=== PATIENT | female | born 1935 | race Caucasian/White ===

== ENCOUNTER → 2022-06-29 14:42 | Outpatient (BNVA) | payer MEDICARE, SELFPAY | PROVIDERS: PCP Nurse Practitioner Adult Health; Visit Provider Psychiatry & Neurology Neurology | DX: G20 Parkinson's disease (principal) | CPT/HCPCS: 99202 ==

== ENCOUNTER 2022-10-17 12:27 | Outpatient (AMB) | payer MEDICARE, SELFPAY ==
[2022-10-17 12:32] VITALS: BP 126/82; PULSE 76; O2SAT 98; BMI 27.3
--- NOTE | 2022-10-17 12:32 | MHC.OFFVIS ---
Intake Vital Signs 10/17/22 12:32 Height 5 ft Weight 140 lb BMI 27.3 BP 126/82 Blood Pressure Location Rt brachial Position Sitting Pulse 76 Pulse Source Pulse Oximeter Pulse Oximetry (%) 98 Oxygen Delivery Method Room Air Intake Visit Reasons: 3m follow Seizure-lvm Intake Note: Patient presents for 3 month follow up seizures Allergies atorvastatin [From Lipitor] Allergy (Unknown, Verified 10/17/22 12:34) Muscle Pain rosuvastatin [From Crestor] Allergy (Unknown, Verified 10/17/22 12:34) Muscle Pain Medication List - Last Reconciled 10/17/22 by Akiko Reaves MD acetaminophen 325 mg PO QID PRN aspirin 81 mg PO DAILY carbidopa-levodopa 25-100 mg tabs PO TID COVID-19 antigen test ([employer] COVID-19 Ag Self Test kit) As directed gabapentin 100 mg PO BEDTIME hydrochlorothiazide 12.5 mg PO DAILY lidocaine 5% 1 patch topical DAILY HPI HPI Comments History of Present Illness Details 87y/o Right handed female comes for follow up of parkinsons disease. she reports her tremors are worse in her legs at night and she started noticing tremors in her right hand.The leg twicthing at night wakes he rup, she moves around and takes tylenol.No episodes of passing out she is exercising at the [employer] 2 times a week. She moved from [facility] about 9months ago. she was diagnosed with parkinsons about 7 years ago . she had tremors in her right UE and slowly progressed .she is on carbidopa/levodopa 25/100 tid which helps. She also reports progressive memory issues.she denies word finding difficulties.she writes everything down to compensate . she still drives and has no issues . she lives alone and has 2 daughters who live in the area. Sleep is disrupted due to frequent long awakenings at night.She has vivid dreams . Not sure of REM behavior disorder. she has anxiety she did not notice any change in his speech or any drooling . she denies difficulty with hand writing, using utensils, dressing , shower. Her gait is slow and mildly off balance . No falls No dizziness , no double vision . she had cataract surgery . she has mild constipation and mild urgency she exercises 2-3 times a week [facility] Medical History Arthritis COPD (chronic obstructive pulmonary disease) HTN (hypertension) Hyperlipidemia Osteoporosis Parkinson's disease Syncope Surgical History History of knee surgery Hx of surgical fusion joint S/P trigger finger release Status post Mohs surgery Family History Mother Cardiovascular disease Glaucoma Parkinsons disease Father Lung cancer Diabetes Social History Alcohol intake: current Alcohol intake frequency: a few times a month Patient Tobacco Use Status: Former Tobacco user Physical Exam Vital Signs: Last Vital Signs Pulse 76 10/17/22 12:32 BP 126/82 10/17/22 12:32 Pulse Ox 98 10/17/22 12:32 Oxygen Delivery Method Room Air 10/17/22 12:32 BMI result Body Mass Index 27.3 Const General: cooperative, healthy appearing and comfortable Nutritional Appearance: average body habitus Orientation/consciousness: patient oriented x3 HEENT Head: Yes normal to inspection Neuro Other: No tremors No cog wheel rigidity Mild bradykinesia FFM and foot taps decreased brigitte mild Gait - stooped, small steps off balance Mild decreased facial expression and blink General: patient oriented x3, moves all extremities and no focal motor deficits Cranial nerves: Yes Facial sensation intact/muscles of mastication intact, Yes Bilaterally intact EOM present, Yes Nystagmus not present, Yes Normal facial strength present, Yes Midline tongue present and Yes Symmetric palate elevation present Cognition (Neuro): normal cognition Gait exam (Neuro): Antalgic gait present Motor exam (neuro): 5/5 motor strength present throughout and Normal motor muscle tone present throughout Coordination: [id number] test normal Psych Affect: Anxious affect present Assessment & Plan Assessment & Plan (1) Parkinson's disease: Comment: stable Code(s): G20 - Parkinson's disease Plan Continue carbidopa/levodopa 25/100 tid Increase fluids I will trial her on gabapentin 100mg qhs for nocturnal leg movements continue exercise stop trazadone Medications: New gabapentin 100 mg PO BEDTIME 30 caps 6RF Coding Level of Care Code Est Pt Level 4 (87452) Diagnoses Parkinson's disease G20
== END 2022-10-17 12:56 | disposition home or self-care (01) ==
PROVIDERS: Visit Provider Psychiatry & Neurology Neurology
DX: G20 Parkinson's disease (principal)
CPT/HCPCS: 99214

== ENCOUNTER → 2022-10-17 12:27 | Outpatient (BNVA) | payer MEDICARE, SELFPAY | PROVIDERS: Visit Provider Psychiatry & Neurology Neurology | DX: G20 Parkinson's disease (principal); M81.0 Age-related osteoporosis without current pathological fracture; R55 Syncope and collapse | CPT/HCPCS: 99212 ==

== ENCOUNTER 2023-02-22 12:06 | Outpatient (AMB) | payer MEDICARE, SELFPAY ==
--- NOTE | 2023-02-22 12:06 | MHC.OFFVIS ---
Intake Vital Signs 02/22/23 12:08 Height 5 ft Weight 140 lb BMI 27.3 BP 130/72 Blood Pressure Location Lt brachial Position Sitting Pulse 80 Pulse Source Pulse Oximeter Pulse Oximetry (%) 100 Oxygen Delivery Method Room Air Intake Visit Reasons: 4m follow Seizure - Confirmed Allergies atorvastatin [From Lipitor] Allergy (Unknown, Verified 02/22/23 12:11) Muscle Pain rosuvastatin [From Crestor] Allergy (Unknown, Verified 02/22/23 12:11) Muscle Pain Medication List - Last Reconciled 02/22/23 by Akiko Reaves MD acetaminophen 325 mg PO QID PRN aspirin 81 mg PO .q0d carbidopa-levodopa 25-100 mg tabs PO TID COVID-19 antigen test ([employer] COVID-19 Ag Self Test kit) As directed hydrochlorothiazide 12.5 mg PO DAILY lidocaine 5% 1 patch topical DAILY HPI HPI Comments History of Present Illness Details 87y/o Right handed female comes for follow up of parkinsons disease. she stopped gabapentin as she had some nightmares. she still has nocturnal cramps but not severe. No episodes of passing out she is exercising at the [employer] 2 times a week.she was in the ER last week for chest paina nd was diagnosed with hiatal hernia . She moved from [facility] about 2 years ago. she was diagnosed with parkinsons about 7 years ago . she had tremors in her right UE and slowly progressed .she is on carbidopa/levodopa 25/100 tid which helps. She also reports progressive memory issues.she denies word finding difficulties.she writes everything down to compensate . she still drives and has no issues . she lives alone and has 2 daughters who live in the area. Sleep is disrupted due to frequent long awakenings at night.She has vivid dreams . Not sure of REM behavior disorder. she has anxiety she did not notice any change in his speech or any drooling . she denies difficulty with hand writing, using utensils, dressing , shower. Her gait is slow and mildly off balance . No falls No dizziness , no double vision . she had cataract surgery . she has mild constipation and mild urgency she exercises 2-3 times a week [facility] Medical History Syncope Parkinson's disease Osteoporosis COPD (chronic obstructive pulmonary disease) Arthritis Hyperlipidemia HTN (hypertension) Surgical History Status post Mohs surgery History of knee surgery S/P trigger finger release Hx of surgical fusion joint Family History Mother Cardiovascular disease Glaucoma Parkinsons disease Father Lung cancer Diabetes Social History Alcohol intake: current Alcohol intake frequency: a few times a month Patient Tobacco Use Status: Former Tobacco user Physical Exam Vital Signs: Last Vital Signs Pulse 80 02/22/23 12:08 BP 130/72 02/22/23 12:08 Pulse Ox 100 02/22/23 12:08 Oxygen Delivery Method Room Air 02/22/23 12:08 BMI result Body Mass Index 27.3 Const General: cooperative, healthy appearing and comfortable Nutritional Appearance: average body habitus Orientation/consciousness: patient oriented x3 HEENT Head: Yes normal to inspection Neuro Other: No tremors No cog wheel rigidity Mild bradykinesia FFM and foot taps decreased brigitte mild Gait - stooped, small steps off balance Mild decreased facial expression and blink General: patient oriented x3, moves all extremities and no focal motor deficits Cranial nerves: Yes Facial sensation intact/muscles of mastication intact, Yes Bilaterally intact EOM present, Yes Nystagmus not present, Yes Normal facial strength present, Yes Midline tongue present and Yes Symmetric palate elevation present Cognition (Neuro): normal cognition Gait exam (Neuro): Antalgic gait present Motor exam (neuro): 5/5 motor strength present throughout and Normal motor muscle tone present throughout Coordination: [id number]-[id number] test normal Psych Affect: Anxious affect present Assessment & Plan Assessment & Plan (1) Parkinson's disease: Comment: stable Code(s): G20 - Parkinson's disease Plan Continue carbidopa/levodopa 25/100 tid Increase fluids continue exercise stop trazadone Coding Level of Care Code Est Pt Level 4 (91289) Diagnoses Parkinson's disease G20
[2023-02-22 12:08] VITALS: BP 130/72; PULSE 80; O2SAT 100; BMI 27.3
== END 2023-02-22 12:26 | disposition home or self-care (01) ==
LOC: HO.HSMS 12:06
PROVIDERS: PCP Nurse Practitioner Adult Health; Visit Provider Psychiatry & Neurology Neurology
DX: G20.A1 Parkinson's disease without dyskinesia, without mention of fluctuations (principal)
CPT/HCPCS: 99214

== ENCOUNTER → 2023-02-22 12:06 | Outpatient (BNVA) | payer MEDICARE, SELFPAY | PROVIDERS: PCP Nurse Practitioner Adult Health; Visit Provider Psychiatry & Neurology Neurology | DX: G20.A1 Parkinson's disease without dyskinesia, without mention of fluctuations (principal) | CPT/HCPCS: 99212 ==

== ENCOUNTER 2023-08-22 11:29 | Outpatient (AMB) | payer OTHER, SELFPAY ==
--- NOTE | 2023-08-22 11:31 | MHC.OFFVIS ---
Vital Signs 08/22/23 11:32 Height 5 ft Weight 141 lb 2 oz BMI 27.6 BP 160/90 H Blood Pressure Location Rt brachial Position Sitting Respiration 16 Pulse 73 Pulse Source Pulse Oximeter Pulse Oximetry (%) 99 Oxygen Delivery Method Room Air Intake Visit Reasons: Parkinsons disease Intake Note: Pt presents for 6 month follow up for Parkinson's. 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 Allergies atorvastatin [From Lipitor] Allergy (Unknown, Verified 08/22/23 11:31) Muscle Pain rosuvastatin [From Crestor] Allergy (Unknown, Verified 08/22/23 11:31) Muscle Pain Medication List - Last Reconciled 08/22/23 by Akiko Reaves MD acetaminophen 325 mg PO QID PRN aspirin 81 mg PO .q0d carbidopa-levodopa 25-100 mg tabs PO TID COVID-19 antigen test ([employer] COVID-19 Ag Self Test kit) As directed hydrochlorothiazide 12.5 mg PO DAILY lidocaine 5% 1 patch topical DAILY meloxicam 7.5 mg PO DAILY HPI Comments Details: 88y/o Right handed female comes for follow up of parkinsons disease. she is doing well she has nocturia which affects her sleep.. No episodes of passing out she is exercising at the [employer] 2 times a weeks. She moved from [facility] about 2 years ago. she was diagnosed with parkinsons about 7 years ago . she had tremors in her right UE and slowly progressed .she is on carbidopa/levodopa 25/100 tid which helps. She also reports progressive memory issues.she denies word finding difficulties.she writes everything down to compensate . she still drives and has no issues . she lives alone and has 2 daughters who live in the area. Sleep is disrupted due to frequent long awakenings at night.She has vivid dreams . Not sure of REM behavior disorder. she has anxiety she did not notice any change in his speech or any drooling . she denies difficulty with hand writing, using utensils, dressing , shower. Her gait is slow and mildly off balance . No falls No dizziness , no double vision . she had cataract surgery . she has mild constipation and mild urgency she exercises 2-3 times a week [facility] Medical History Bilateral knee pain Parkinson's disease without dyskinesia Syncope Parkinson's disease Osteoporosis COPD (chronic obstructive pulmonary disease) Arthritis Hyperlipidemia HTN (hypertension) Surgical History Status post Mohs surgery History of knee surgery S/P trigger finger release Hx of surgical fusion joint Family History Mother Cardiovascular disease Glaucoma Parkinsons disease Father Lung cancer Diabetes Social History Alcohol intake: current Alcohol intake frequency: a few times a month Patient Tobacco Use Status: Former Tobacco user Physical Exam Vital Signs: Last Vital Signs Pulse 73 08/22/23 11:32 Resp 16 08/22/23 11:32 BP 160/90 H 08/22/23 11:32 Pulse Ox 99 08/22/23 11:32 Oxygen Delivery Method Room Air 08/22/23 11:32 BMI result Body Mass Index 27.6 Const General: cooperative, healthy appearing and comfortable Nutritional Appearance: average body habitus Orientation/consciousness: patient oriented x3 HEENT Head: Yes normal to inspection Neuro Other: No tremors No cog wheel rigidity Mild bradykinesia FFM and foot taps decreased brigitte mild Gait - stooped, small steps off balance Mild decreased facial expression and blink General: patient oriented x3, moves all extremities and no focal motor deficits Cranial nerves: Yes Facial sensation intact/muscles of mastication intact, Yes Bilaterally intact EOM present, Yes Nystagmus not present, Yes Normal facial strength present, Yes Midline tongue present and Yes Symmetric palate elevation present Cognition (Neuro): normal cognition Gait exam (Neuro): Antalgic gait present Motor exam (neuro): 5/5 motor strength present throughout and Normal motor muscle tone present throughout Coordination: [id number]-tl-tnvd test normal Psych Affect: Anxious affect present Assessment & Plan Assessment & Plan (1) Parkinson's disease without dyskinesia: Code(s): G20.A1 - Parkinson's disease without dyskinesia, without mention of fluctuations Category: Medical (2) Parkinson's disease: Comment: stable Code(s): G20 - Parkinson's disease Category: Medical Plan Continue carbidopa/levodopa 25/100 tid Increase fluids continue exercise will trial her on myrbetriq 25 mg qhs Orders: Referrals Pain Management Referral M19.90 - Unspecified osteoarthritis, unspecified site, M25.561 - Pain in right knee, M25.562 - Pain in left knee Medications: New mirabegron ER (Myrbetriq) 25 mg PO .qhs 30 tabs 4RF Coding Level of Care Code Est Pt Level 4 (91158) Complex EM visit Add On G2211 Diagnoses Parkinson's disease without dyskinesia G20.A1 Parkinson's disease G20
[2023-08-22 11:32] VITALS: BP 160/90; PULSE 73; RESP 16; O2SAT 99; BMI 27.6
== END 2023-08-22 11:51 | disposition home or self-care (01) ==
PROVIDERS: PCP Nurse Practitioner Adult Health; Visit Provider Psychiatry & Neurology Neurology
DX: G20.A1 Parkinson's disease without dyskinesia, without mention of fluctuations (principal)
CPT/HCPCS: 99213; G2211

== ENCOUNTER 2023-12-03 10:03 | Outpatient (AMB) | payer OTHER, SELFPAY ==
[2023-12-03 10:05] VITALS: BP 134/60; PULSE 77; RESP 16; O2SAT 97; BMI 28.6
--- NOTE | 2023-12-03 10:05 | MHC.OFFVIS ---
Vital Signs 12/03/23 10:05 Height 5 ft Weight 146 lb 6 oz BMI 28.6 BP 134/60 Blood Pressure Location Rt brachial Position Sitting Respiration 16 Pulse 77 Pulse Source Pulse Oximeter Pulse Oximetry (%) 97 Oxygen Delivery Method Room Air Intake Visit Reasons: Worsening Tremors Intake Note: Pt presents for 3 month follow up for Parkinson's. 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 she was doing well until 2 weeks ago - she had a dog bite her left and right leg. she went to ER - had antibiotics , not sure about rabies prophylaxis. she sees wound care at [place]. Her parkinsons was stable but her whole body has been shaking - like myoclous at night that keeps her awake. she has nocturia which affects her sleep.. No episodes of passing out she is exercising at the [employer] 2 times a weeks. History from Initial visit-She moved from [facility] about 2 years ago. she was diagnosed with parkinsons about 7 years ago . she had tremors in her right UE and slowly progressed .she is on carbidopa/levodopa 25/100 tid which helps. She also reports progressive memory issues.she denies word finding difficulties.she writes everything down to compensate . she still drives and has no issues . she lives alone and has 2 daughters who live in the area. Sleep is disrupted due to frequent long awakenings at night.She has vivid dreams . Not sure of REM behavior disorder. she has anxiety she did not notice any change in his speech or any drooling . she denies difficulty with hand writing, using utensils, dressing , shower. Her gait is slow and mildly off balance . No falls No dizziness , no double vision . she had cataract surgery . she has mild constipation and mild urgency she exercises 2-3 times a week [facility] Medical History (Updated 12/03/23 @ 10:18 by Akiko eRaves MD) Nocturnal leg movements Bilateral knee pain Parkinson's disease without dyskinesia Syncope Parkinson's disease Osteoporosis COPD (chronic obstructive pulmonary disease) Arthritis Hyperlipidemia HTN (hypertension) Surgical History Status post Mohs surgery History of knee surgery S/P trigger finger release Hx of surgical fusion joint Family History Mother Cardiovascular disease Glaucoma Parkinsons disease Father Lung cancer Diabetes Social History Alcohol intake: current Alcohol intake frequency: a few times a month Patient Tobacco Use Status: Former Tobacco user Physical Exam Vital Signs: Last Vital Signs Pulse 77 12/03/23 10:05 Resp 16 12/03/23 10:05 BP 134/60 12/03/23 10:05 Pulse Ox 97 12/03/23 10:05 Oxygen Delivery Method Room Air 12/03/23 10:05 BMI result Body Mass Index 28.6 Const General: cooperative, healthy appearing and comfortable Nutritional Appearance: average body habitus Orientation/consciousness: patient oriented x3 HEENT Head: Yes normal to inspection Neuro Other: No tremors No cog wheel rigidity Mild bradykinesia FFM and foot taps decreased brigitte mild Gait - stooped, small steps off balance Mild decreased facial expression and blink Left calf - open wound dressed General: patient oriented x3, moves all extremities and no focal motor deficits Cranial nerves: Yes Facial sensation intact/muscles of mastication intact, Yes Bilaterally intact EOM present, Yes Nystagmus not present, Yes Normal facial strength present, Yes Midline tongue present and Yes Symmetric palate elevation present Cognition (Neuro): normal cognition Gait exam (Neuro): Antalgic gait present Motor exam (neuro): 5/5 motor strength present throughout and Normal motor muscle tone present throughout Coordination: [id number] test normal Psych Affect: Anxious affect present Assessment & Plan Assessment & Plan (1) Parkinson's disease without dyskinesia: Code(s): G20.A1 - Parkinson's disease without dyskinesia, without mention of fluctuations Category: Medical (2) Nocturnal leg movements: Code(s): R25.8 - Other abnormal involuntary movements Category: Medical Plan Continue carbidopa/levodopa 25/100 tid Increase fluids continue exercise will trial her on myrbetriq 25 mg qhs she cannot tolerate gabapentin i will trial her on requip 0.25 mg 1-4 tabs qhs Medications: New ropinirole orally bedtime; 1-4 tabs administer 1-3 hours before bedtime 120 tabs 3RF Coding Level of Care Code Est Pt Level 4 (09957) Complex EM visit Add On G2211 Diagnoses Parkinson's disease without dyskinesia G20.A1 Nocturnal leg movements R25.8
== END 2023-12-03 10:26 | disposition home or self-care (01) ==
PROVIDERS: Visit Provider Psychiatry & Neurology Neurology
DX: G20.A1 Parkinson's disease without dyskinesia, without mention of fluctuations (principal)
CPT/HCPCS: 99214; G2211

== ENCOUNTER 2024-02-25 10:44 | Outpatient (AMB) | payer OTHER, SELFPAY ==
[2024-02-25 10:46] VITALS: BP 116/70; PULSE 70; O2SAT 98
--- NOTE | 2024-02-25 10:46 | A.OFFVIS_ITS ---
Vital Signs 02/25/24 10:46 Height 5 ft BP 116/70 Blood Pressure Location Rt brachial Position Sitting Pulse 70 Pulse Source Pulse Oximeter Pulse Oximetry (%) 98 Oxygen Delivery Method Room Air Intake Visit Reasons: Follow up Intake Note: Patient presents for follow up. since last visit patient has fallen, having difficulty walking. Allergies atorvastatin [From Lipitor] Allergy (Unknown, Verified 02/25/24 10:51) Muscle Pain rosuvastatin [From Crestor] Allergy (Unknown, Verified 02/25/24 10:51) Muscle Pain Medication List - Last Reconciled 02/25/24 by Vanessa Kline PA-C acetaminophen 325 mg PO QID PRN carbidopa-levodopa 25-100 mg tabs PO TID COVID-19 antigen test ([employer] COVID-19 Ag Self Test kit) As directed hydrochlorothiazide 12.5 mg PO DAILY lidocaine 5% 1 patch topical DAILY mirabegron ER (Myrbetriq) 25 mg PO .qhs ropinirole orally bedtime; 1-4 tabs administer 1-3 hours before bedtime HPI Comments Details: 88y/o Right handed female comes for follow up of parkinsons disease. She was doing well until Jan 22 she had a fall missed her step and the curb, scraped her R. knee and it is swollen, she had an Xray, will f/u with PCP, next week. Her Parkinsons disorder is stable. She has Nocturia which affects her sleep. No episodes of passing out, She was exercising at the [employer] [facility] 2 times a weeks prior to the fall. She also reports progressive memory issues. She denies word finding difficulties. She writes everything down to compensate for forgetfulness. She lives alone and has 2 daughters who live in the area. Sleep is disrupted due to frequent long awakenings at night, 8pm bedtime, and up at 1am, ordering items on TV. She has vivid dreams. Denies REM behavior. She has anxiety, sad about not being able to drive anymore will be using [employer] , now. She did not notice any change in his speech or any drooling. She denies difficulty with hand writing, using utensils, dressing , shower. 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 Her gait is slow and mildly off balance. No dizziness, no double vision, she had cataract surgery. She has mild constipation and mild urgency, increased her fiber intake. She uses a cane to ambulate. [facility] Medical History Nocturnal leg movements Bilateral knee pain Parkinson's disease without dyskinesia Syncope Parkinson's disease Osteoporosis COPD (chronic obstructive pulmonary disease) Arthritis Hyperlipidemia HTN (hypertension) Surgical History Status post Mohs surgery History of knee surgery S/P trigger finger release Hx of surgical fusion joint Family History Mother Cardiovascular disease Glaucoma Parkinsons disease Father Lung cancer Diabetes Social History Alcohol intake: current Alcohol intake frequency: a few times a month Patient Tobacco Use Status: Former Tobacco user Physical Exam Vital Signs: Last Vital Signs Pulse 70 02/25/24 10:46 BP 116/70 02/25/24 10:46 Pulse Ox 98 02/25/24 10:46 Oxygen Delivery Method Room Air 02/25/24 10:46 Const General: cooperative, comfortable and no acute distress Nutritional Appearance: average body habitus Orientation/consciousness: patient oriented x3 Limitations: ambulation with cane Eyes Pupils: Equal, round and reactive pupils present Neuro General: patient oriented x3 Cranial nerves: Yes CN's II-XII intact bilaterally, Yes Facial sensation intact/muscles of mastication intact, Yes Equal, round and reactive pupils present, Yes Normal accommodation reflex present, Yes Bilaterally intact EOM present, Yes Normal facial strength present, Yes Midline tongue present, Yes Ability to bilaterally rotate head present and Yes Ability to bilaterally elevate shoulders present Gait exam (Neuro): Shuffling gait present and Assistive device used Psych Appearance: grossly normal Speech and movement: Slowed movement present (Neuro) Affect: Labile affect present Attitude: cooperative Thought process: Normal thought process present Thought content: Normal thought content present Insight: Good insight present (Psych) Judgement: Good judgement present (Psych) Results Reviewed Results Reviewed: Medications Assessment & Plan Assessment & Plan (1) Anxiety and depression: Code(s): F41.9 - Anxiety disorder, unspecified; F32.A - Depression, unspecified Category: Medical Plan Will start her on Buspirone 5mg PO BID, for anxiety and depression. Will have home health services come in for PT evaluation and treat, for knee and leg pain. Patient education: Parkinsons disease natural progression, encouraged her to stay active get out as much as possible, to use [employer] services per son and daughter to get out 2-3 times a week and get to the gym, which will help with her mood. Take medication 25/100mg PO TID exactly as directed, with crackers or a cookie, 30 min prior to meals with proteins and one hour after taking medications, you may have proteins. Amino Acids will interfere with dose absorption rate and good outcomes. Drink water, 24-48 ounces or more daily to stay hydrated and avoid constipation, may use a stool softener such as doculax or miralax, increase fruits and vegetable intake, along with seeds and nuts as this will increase fiber intake. Orders: Orders PT Evaluation and Treatment Today F32.A - Depression, unspecified, F41.9 - Anxiety disorder, unspecified, M25.561 - Pain in right knee, M25.562 - Pain in left knee, R25.8 - Other abnormal involuntary movements Medications: New buspirone 5 mg PO BID 30 tabs 0RF F32.A - Depression, unspecified, F41.9 - Anxiety disorder, unspecified Coding Level of Care Code Est Pt Level 4 (84039) Complex EM visit Add On G2211 Diagnoses Anxiety and depression F41.9; F32.A Time Spent (min) 40 Comment Worsening anxiety and depression
--- OUTSIDE RECORDS SUMMARY | 2024-02-26 20:24 | XMS_ITS ---
Author Name [facility] Organization Unknown History of Medication Use Medication Directions Dispensed Refills Start Date End Date Status acetaminophen (TYLENOL) tablet 975 mg 975 mg, Oral, Once, On 10/12/23 at 1945, For 1 dose 4 completed meloxicamTake (oral)[id number] frequency recordedoralNo set duration recordedNo set duration amount ppkscxqrqfqkfp60za 4 active famotidineTake (oral)43804231kuauxvGs frequency recordedoralNo set duration recordedNo set duration amount aentyhvxjngadx44eh 4 active diclofenac sodiumTak e (topical)85526502auvLi frequency recordedtopicalNo set duration recordedNo set duration amount recordedactive1% 4 active gabapentinTake (oral)22800072zjrojhtj , oralNo frequency recordedoralNo set duration recordedNo set duration amount ivytupkxqegjze996gc/5 mL 4 active oxyBUTYnin chlorideTake (oral)15485494Mrhvll, Extended Release 24 hrNo frequency recordedoralNo set duration recordedNo set duration amount nbyrnhtxgimrtr8dv 4 active Dqqh-BUVZWXMpoao-J etracaine 4-0.18-0.5 % GEL Topical, Once, On 10/12/23 at 2115, For 1 dose 4 completed carbidopa-levodopaTa ke (oral)33738474wrcbmqDx frequency recordedoralNo set duration recordedNo set duration amount gkwikzvhuznrlc92-256ae 4 active oxyCODONETake (oral)31824574icdnddgn , oralNo frequency recordedoralNo set duration recordedNo set duration amount hcxrzbrrnucetl0fj/5 mL 4 active Cheratussin ACTakeNo date recordedNo form recordedNo frequency recordedNo route recordedNo set duration recordedNo set duration amount recordedactiveNo dosage strength recordedNo dosage strength units of measure recorded 4 active mirabegronTake (oral)[id number], Extended Release 24 hrNo frequency recordedoralNo set duration recordedNo set duration amount bovekuzphzehiw93yy 4 active cephALEXinTake (oral)95952025vmnnpntV o frequency recordedoralNo set duration recordedNo set duration amount djjqishorjbjle503xy 4 active lidocaine (PF) (XYLOCAINE-MPF) 1 % injection 15 mL 15 mL, Infiltration, Once, On 10/12/23 at 1945, For 1 dose 4 completed diazePAM (VALIUM) tablet 2 mg 2 mg, Oral, Once, On 10/12/23 at 204, For 1 dose 4 completed Problems Problem Status Onset Date Problem Type Date of Resolution Source Other injury of unspecified body region, initial encounter active 2023-10-12 ProblemAct [facility]_PHYSONE Laceration of leg active EncounterDiagnosisAct [facility] Immunizations Vaccine Date Source Lot Number Status Tdap 10/12/2023 [facility] [id number] completed
== END 2024-02-25 11:50 | disposition home or self-care (01) ==
PROVIDERS: PCP Student in an Organized Health Care Education/Training Program; Visit Provider Physician Assistant Medical
DX: F41.9 Anxiety disorder, unspecified (principal); F32.A Depression, unspecified
CPT/HCPCS: 99214; G2211

== ENCOUNTER 2024-06-02 10:11 | Outpatient (AMB) | payer MEDICARE, SELFPAY ==
[2024-06-02 10:15] VITALS: BP 126/80; PULSE 70; O2SAT 100; BMI 28.7
--- NOTE | 2024-06-02 10:15 | A.OFFVIS_ITS ---
Vital Signs 06/02/24 10:15 Height 5 ft Weight 147 lb BMI 28.7 BP 126/80 Blood Pressure Location Rt brachial Position Sitting Pulse 70 Pulse Source Pulse Oximeter Pulse Oximetry (%) 100 Oxygen Delivery Method Room Air Intake Visit Reasons: Worsening Tremors (ok per MD) Intake Note: Patient presents for follow up new med trial ropirinole. Allergies atorvastatin [From Lipitor] Allergy (Unknown, Verified 06/02/24 10:18) Muscle Pain rosuvastatin [From Crestor] Allergy (Unknown, Verified 06/02/24 10:18) Muscle Pain Medication List - Last Reconciled 06/02/24 by Akiko Reaves MD acetaminophen 325 mg PO QID PRN buspirone 5 mg PO BID carbidopa-levodopa 25-100 mg tabs PO TID COVID-19 antigen test ([employer] COVID-19 Ag Self Test kit) As directed hydrochlorothiazide 12.5 mg PO DAILY lidocaine 5% 1 patch topical DAILY mirabegron ER (Myrbetriq) 25 mg PO .qhs ropinirole orally bedtime; 1-4 tabs administer 1-3 hours before bedtime HPI Comments Details: 88y/o Right handed female comes for follow up of parkinsons disease.she reports severe pain in her right knee. She was doing well until Jan 22 she had a fall missed her step and the curb, scraped her R. knee and it is swollen, she had an Xray, will f/u with PCP, next week. Her Parkinsons disorder is stable. She has Nocturia which affects her sleep. No episodes of passing out, She was exercising at the [employer] [facility] 2 times a weeks prior to the fall. She also reports progressive memory issues. She denies word finding difficulties. She writes everything down to compensate for forgetfulness. She lives alone and has 2 daughters who live in the area. Sleep is disrupted due to frequent long awakenings at night, 8pm bedtime, and up at 1am, ordering items on TV. She has vivid dreams. Denies REM behavior. She has anxiety, sad about not being able to drive anymore will be using [employer] , now. She did not notice any change in his speech or any drooling. She denies difficulty with hand writing, using utensils, dressing , shower. She has a [employer] come help 3 times a week. Her gait is slow and mildly off balance. No dizziness, no double vision, she had cataract surgery. She has mild constipation and mild urgency, increased her fiber intake. She uses a cane to ambulate. [facility] Medical History (Updated 06/02/24 @ 10:39 by Akiko Reaves MD) Right knee pain Nocturnal leg movements Bilateral knee pain Parkinson's disease without dyskinesia Syncope Parkinson's disease Osteoporosis COPD (chronic obstructive pulmonary disease) Arthritis Hyperlipidemia HTN (hypertension) Surgical History Status post Mohs surgery History of knee surgery S/P trigger finger release Hx of surgical fusion joint Family History Mother Cardiovascular disease Glaucoma Parkinsons disease Father Lung cancer Diabetes Social History Alcohol intake: current Alcohol intake frequency: a few times a month Patient Tobacco Use Status: Former Tobacco user Physical Exam Vital Signs: Last Vital Signs Pulse 70 06/02/24 10:15 BP 126/80 06/02/24 10:15 Pulse Ox 100 06/02/24 10:15 Oxygen Delivery Method Room Air 06/02/24 10:15 BMI result Body Mass Index 28.7 Const General: cooperative, healthy appearing and comfortable Nutritional Appearance: average body habitus Orientation/consciousness: patient oriented x3 HEENT Head: Yes normal to inspection Neuro Other: No tremors No cog wheel rigidity Mild bradykinesia FFM and foot taps decreased brigitte mild Gait - stooped, small steps off balance Mild decreased facial expression and blink Left calf - open wound dressed General: patient oriented x3, moves all extremities and no focal motor deficits Cranial nerves: Yes Facial sensation intact/muscles of mastication intact, Yes Bilaterally intact EOM present, Yes Nystagmus not present, Yes Normal facial strength present, Yes Midline tongue present and Yes Symmetric palate elevation present Cognition (Neuro): normal cognition Gait exam (Neuro): Antalgic gait present Motor exam (neuro): 5/5 motor strength present throughout and Normal motor musc le tone present throughout Coordination: bkuwfw-om-drkj test normal Psych Affect: Anxious affect present Assessment & Plan Assessment & Plan (1) Parkinson's disease without dyskinesia: Code(s): G20.A1 - Parkinson's disease without dyskinesia, without mention of fluctuations Category: Medical Qualifiers: Fluctuating manifestations: without fluctuating manifestations Qualified Code(s): G20.A1 - Parkinson's disease without dyskinesia, without mention of fluctuations (2) Nocturnal leg movements: Code(s): R25.8 - Other abnormal involuntary movements Category: Medical (3) Right knee pain: Code(s): M25.561 - Pain in right knee Category: Medical Qualifiers: Chronicity: chronic Qualified Code(s): M25.561 - Pain in right knee; G89.29 - Other chronic pain Plan Continue carbidopa/levodopa 25/100 tid refer to Rheumatology for Right knee pain Increase fluids continue exercise myrbetriq 25 mg qhs she cannot tolerate gabapentin i will trial her on requip 0.25 mg 1-4 tabs qhs Orders: Referrals Rheumatology Referral G89.29 - Other chronic pain, M25.561 - Pain in right knee Coding Level of Care Code Est Pt Level 4 (90466) Diagnoses Parkinson's disease without dyskinesia or fluctuating manifestations G20.A1 Fluctuating manifestations: without fluctuating manifestations Nocturnal leg movements R25.8 Chronic pain of right knee M25.561; G89.29 Chronicity: chronic
== END 2024-06-02 10:43 | disposition home or self-care (01) ==
LOC: HO.HSMS 10:12
PROVIDERS: PCP Student in an Organized Health Care Education/Training Program; Visit Provider Psychiatry & Neurology Neurology
DX: G20.A1 Parkinson's disease without dyskinesia, without mention of fluctuations (principal); M25.561 Pain in right knee; G89.29 Other chronic pain; R25.8 Other abnormal involuntary movements
CPT/HCPCS: 99214